=== PATIENT | female | born 1990 | race Hispanic/Latino ===

== ENCOUNTER 2021-02-24 19:30 | Emergency (ER) | payer OTHER, SELFPAY ==
[2021-02-24] MEDS ORDERED: Fentanyl 100 MCG/2 ML VIAL ONE (20:12)
[2021-02-24 20:13] LABS: Bilirubin Neg (Negative); Blood, Urine 10 (Negative); Clarity Clear (Clear); Glucose, Urine (Dipstick) Normal (Negative); Ketone, Urine 150 mg/dL (Negative); Leukocyte 25 (Negative); Nitrite Negative (Negative); Protein, Urine (Dipstick) 500 mg/dl (Neg-Trace); Urobilinogen Normal mg/dL (Less than 2)
[2021-02-24 20:15] LABS: #Monocytes 0.6 10x3/uL (0.0-1.1); #Neutrophils 14.8 10x3/uL (1.5-8.4); %Basophils 0.2 % (0.0-2.0); %Eosinophils 0.1 % (0.0-6.0); %Lymphocytes 11.1 % (18.0-47.0); %Monocytes 3.7 % (0.0-10.0); %Neutrophils 84.5 % (40.0-75.0); Hemoglobin 11.5 g/dL (12.0-15.5); Mean Corpuscular HGB CONC 34.5 g/dL (32.0-36.0); Mean Corpuscular Hemoglobin 27.9 pg (27.0-33.0); Mean Corpuscular Volume 80.8 fl (81.6-98.3); Mean Platelet Volume 11.1 fl (7.4-10.4); Platelet Count 326 10x3/uL (150-450); RBC Distribution Width 12.6 % (11.5-14.5); Red Blood Cell (RBC) Count 4.12 10x6/uL (3.90-5.03); White Blood Cell (WBC) Count 17.5 10x3/uL (3.5-10.5)
[2021-02-24 20:27] LABS: Bacteria/HPF 2+ HPF (None Seen); Mucous/LPF Rare LPF (<2+); RBC/HPF 0-3 HPF (0-3); Squamous Epithelial 0-3 HPF (0-3)
[2021-02-27 16:36] LABS: Chlamydia by PCR Not Detected (NotDetected); GC by PCR Not Detected (NotDetected)
== END 2021-02-24 23:18 | disposition home or self-care (01) ==
LOC: CSHERS 19:30
DX: O99.891 Other specified diseases and conditions complicating pregnancy (principal); R10.2 Pelvic and perineal pain; M54.5 Low back pain; G47.00 Insomnia, unspecified; Z3A.09 9 weeks gestation of pregnancy
CPT/HCPCS: 76770; 76856; 81003; 81015; 84702; 85025; 86900; 86901; 87077; 87086; 87480; 87491; 87510; 87591; 87660; 96374; J3010

== ENCOUNTER 2021-07-06 22:23 | Day surgery (SDC) | payer SELFPAY ==
[2021-07-06 22:51] VITALS: BMI 30.2
[2021-07-06] MEDS ORDERED: hydrALAZINE 20 MG/ML VIAL SLOW IVP PRN (23:07)
[2021-07-06 23:35] LABS: Bilirubin Neg (Negative); Blood, Urine Negative (Negative); Clarity Clear (Clear); Glucose, Urine (Dipstick) Normal (Negative); Ketone, Urine Negative (Negative); Leukocyte Negative (Negative); Nitrite Negative (Negative); Protein, Urine (Dipstick) 30 mg/dl (Neg-Trace); Urobilinogen Normal mg/dL (Less than 2)
[2021-07-06 23:40] LABS: Urine Culture Reflex No No
[2021-07-06 23:59] LABS: FFN Internal QC Analyzer PASS (PASS); FFN Internal QC Cassette PASS (PASS); Fetal Fibronectin Negative (Negative)
[2021-07-07 00:03] LABS: Bacteria/HPF None Seen HPF (None Seen); RBC/HPF 0-3 HPF (0-3); Squamous Epithelial 0-3 HPF (0-3); WBC/HPF 0-3 HPF (0-3)
== END 2021-07-07 01:13 | disposition home or self-care (01) ==
LOC: CSHLD/OP 22:23
PROVIDERS: ATTEND Student in an Organized Health Care Education/Training Program
DX: O99.891 Other specified diseases and conditions complicating pregnancy (principal); R10.30 Lower abdominal pain, unspecified; M54.9 Dorsalgia, unspecified; O24.410 Gestational diabetes mellitus in pregnancy, diet controlled; Z3A.27 27 weeks gestation of pregnancy
CPT/HCPCS: 76815; 81001; 82731; 99284

== ENCOUNTER 2021-09-15 13:13 | Inpatient (IN) | payer MEDICAID, OTHER, SELFPAY ==
[2021-09-15 13:43] VITALS: BMI 33.0
[2021-09-15] MEDS ORDERED: Ondansetron PF 4 MG/2 ML Vial IVP PRN ×2 (13:47→17:57)
[2021-09-15] MEDS ORDERED: hydrALAZINE 20 MG/ML VIAL SLOW IVP PRN ×2 (13:47→23:35)
[2021-09-15] MEDS ORDERED: Promethazine HCl 25 MG/ML VIAL IM PRN ×2 (13:47→17:57)
[2021-09-15] MEDS ORDERED: Famotidine/PF 20 mg/2ml Vial SLOW IVP PRN (13:47)
[2021-09-15] MEDS ORDERED: Bicitra 30 ML UDCUP PO PRN (13:47)
[2021-09-15] MEDS ORDERED: CEFAZOLIN 2 GM in Premix Bag 1 BAG IVPB SCH (14:00)
[2021-09-15] MEDS: Lactated Ringer's 1,000 ML IV SCH ×2 (14:34→16:21)
[2021-09-15 14:57] LABS: Hemoglobin 9.5 g/dL (12.0-15.5); Mean Corpuscular HGB CONC 33.3 g/dL (32.0-36.0); Mean Corpuscular Hemoglobin 27.3 pg (27.0-33.0); Mean Corpuscular Volume 81.9 fl (81.6-98.3); Mean Platelet Volume 10.7 fl (7.4-10.4); Platelet Count 259 10x3/uL (150-450); RBC Distribution Width 13.6 % (11.5-14.5); Red Blood Cell (RBC) Count 3.48 10x6/uL (3.90-5.03); White Blood Cell (WBC) Count 12.9 10x3/uL (3.5-10.5)
[2021-09-15 15:36] LABS: Hep B Surf Ag Non-Reactive S/CO (NonReactive); Syphilis Antibody Nonreactive (Nonreactive); Syphilis Antibody Index 0.05 S/CO (<1.00 Non-Reactive)
[2021-09-15 15:45] LABS: SARS-CoV-2 NAA Rapid Test DETECTED (NotDetected)
[2021-09-15 15:49] LABS: HBSAg Index 0.17 S/CO (0-0.99)
[2021-09-15] MEDS ORDERED: Ondansetron PF 4 MG/2 ML Vial ONE (16:19)
[2021-09-15] MEDS ORDERED: Fentanyl 100 MCG/2 ML VIAL ONE (16:19)
[2021-09-15] MEDS ORDERED: Oxytocin 10 UNITS/ML VIAL ONE ×2 (16:20→17:19)
[2021-09-15] MEDS ORDERED: Morphine PF 10 MG/10 ML VIAL ONE (16:44)
[2021-09-15] MEDS ORDERED: PHENYLEPHRINE-NS 100 MCG/ML 10 ML SYRINGE ONE (17:04)
[2021-09-15] MEDS ORDERED: Dexamethasone 4 mg/ml Vial ONE (17:09)
[2021-09-15] MEDS ORDERED: Ketorolac Tromethamine 30 MG/ML VIAL ONE (17:09)
[2021-09-15] MEDS ORDERED: Naloxone HCl 0.4 mg/ml Vial IV PRN (17:57)
[2021-09-15] MEDS ORDERED: Hydrocerin (Eucerin) Cream 120 gm Jar TOP PRN (17:57)
[2021-09-15] MEDS ORDERED: HYDROmorphone 2 MG/ML VIAL SLOW IVP PRN (17:57)
[2021-09-15] MEDS ORDERED: Fentanyl 100 MCG/2 ML VIAL SLOW IVP PRN (17:57)
[2021-09-15] MEDS ORDERED: Ondansetron HCl/PF 4 MG/2 ML Vial IVP PRN (17:57)
[2021-09-15] MEDS ORDERED: diphenhydrAMINE 50 MG/ML VIAL IVP PRN (17:57)
[2021-09-15] MEDS ORDERED: Naloxone HCl 0.4 mg/ml Vial IVP PRN ×2 (17:57)
[2021-09-15] MEDS ORDERED: Promethazine HCl 25 MG SUPP PR PRN (17:57)
[2021-09-15] MEDS ORDERED: Meperidine HCl/PF 25 MG/ML VIAL SLOW IVP PRN (17:57)
[2021-09-15] MEDS ORDERED: Ketorolac Tromethamine 30 MG/ML VIAL IVP SCH (18:00)
[2021-09-15] MEDS ORDERED: Communication Order-Pharmacy FS SCH (18:00)
[2021-09-15 19:56] LABS: HIV (1/2) Antibody/Antigen Non-Reactive (NonReactive); HIV 1/2 INDEX 0.07 S/CO (<1.00)
[2021-09-15] MEDS ORDERED: Boostrix 0.5 ML (Tdap) VIAL IM ONE (23:35)
[2021-09-15] MEDS ORDERED: Simethicone Chewable 80 MG TAB PO PRN (23:35)
[2021-09-15] MEDS ORDERED: Lanolin Ointment 7 GM TUBE TOP PRN (23:35)
[2021-09-15] MEDS ORDERED: Methylergonovine 0.2 MG/ML VIAL IM PRN (23:35)
[2021-09-15] MEDS ORDERED: NS w/ Oxytocin 30 units 500 ML IV SCH (23:35)
[2021-09-15] MEDS ORDERED: Misoprostol 200 MCG TAB PR PRN (23:35)
[2021-09-16] MEDS: Ketorolac Tromethamine 30 MG/ML VIAL IVP PRN ×2 (04:35→12:35)
[2021-09-16] MEDS ORDERED: HYDROcodone/Acetaminophen 5/325 mg Tablet PO PRN (06:00)
[2021-09-16] MEDS: Docusate Calcium (SURFAK) 240 MG CAP PO SCH ×3 (06:28→20:47)
[2021-09-16] MEDS: Ferrous Sulfate 325 MG TAB PO SCH ×3 (06:28→20:47)
[2021-09-16] MEDS: Lactated Ringer's 1,000 ML IV SCH ×3 (06:29→17:21)
[2021-09-16 07:42] LABS: Hemoglobin 7.6 g/dL (12.0-15.5); Mean Corpuscular HGB CONC 33.2 g/dL (32.0-36.0); Mean Corpuscular Hemoglobin 27.3 pg (27.0-33.0); Mean Corpuscular Volume 82.4 fl (81.6-98.3); Mean Platelet Volume 10.7 fl (7.4-10.4); Platelet Count 230 10x3/uL (150-450); RBC Distribution Width 13.5 % (11.5-14.5); Red Blood Cell (RBC) Count 2.78 10x6/uL (3.90-5.03); White Blood Cell (WBC) Count 19.6 10x3/uL (3.5-10.5)
[2021-09-16] MEDS: Prenatal Vitamin 1 TAB PO SCH (09:28)
[2021-09-16] MEDS: HYDROcodone/Acetaminophen 5/325 mg Tablet PO PRN (17:00)
[2021-09-16] MEDS: Ibuprofen 800 MG TAB PO SCH (20:46)
[2021-09-17] MEDS: Ibuprofen 800 MG TAB PO SCH ×3 (05:35→20:42)
[2021-09-17] MEDS: Docusate Calcium (SURFAK) 240 MG CAP PO SCH ×2 (09:03→20:42)
[2021-09-17] MEDS: Prenatal Vitamin 1 TAB PO SCH (09:03)
[2021-09-17] MEDS: Ferrous Sulfate 325 MG TAB PO SCH ×2 (09:03→20:41)
[2021-09-17] MEDS: HYDROcodone/Acetaminophen 5/325 mg Tablet PO PRN (12:14)
[2021-09-18] MEDS: Ibuprofen 800 MG TAB PO SCH (06:12)
[2021-09-18] MEDS: Prenatal Vitamin 1 TAB PO SCH (07:30)
[2021-09-18] MEDS: Docusate Calcium (SURFAK) 240 MG CAP PO SCH (07:30)
[2021-09-18] MEDS: Ferrous Sulfate 325 MG TAB PO SCH (07:30)
[2021-09-18 07:42] VITALS: BP 116/72; TEMP 98.9
== END 2021-09-18 11:55 | disposition home or self-care (01) | DRG 786 ==
LOC: CSHLD 13:13 → CSHPP 20:18
PROVIDERS: ADMIT Obstetrics & Gynecology; ATTEND Obstetrics & Gynecology
PROC: 10D00Z1 Extraction of Products of Conception, Low, Open Approach (ICD-10-PCS; principal; 2021-09-15)
DX: O32.1XX0 Maternal care for breech presentation, not applicable or unspecified (principal); U07.1 COVID-19; O41.03X0 Oligohydramnios, third trimester, not applicable or unspecified; O98.52 Other viral diseases complicating childbirth; Z3A.38 38 weeks gestation of pregnancy; Z37.0 Single live birth
CPT/HCPCS: 36415; 51702; 85027; 86780; 86850; 86900; 86901; 87340; 87389; J0690; J1100; J1885; J2274; J2405; J2590; J3010; J7120; S0028; U0002